=== PATIENT | female | born 2005 | race Asian ===

== ENCOUNTER 2025-07-06 23:11 | Emergency (ER) | payer BC, SELFPAY ==
[2025-07-06 23:17] VITALS: BP 117/59; PULSE 86; RESP 14; TEMP 36.6; O2SAT 99; BMI 25.7
[2025-07-06 23:36] LABS: MANUAL DIFF FLAG NO
[2025-07-06 23:37] LABS: Hematocrit 33.4 % (37.0-47.0); Hemoglobin 10.6 g/dl (12.0-16.0); Imm Gran Abs Auto 0.04 X10*3/uL (0.00-0.03); Imm Gran Pct Auto 0.3 % (0.0-0.4); Lymphocytes Absolute Auto 4.7 X10*3/uL (1.2-4.9); Mean Corpuscular HGB Conc 31.7 g/dl (31.0-35.0); Mean Corpuscular Hemoglobin 22.1 pg (27.0-33.0); Mean Corpuscular Volume 69.7 fL (80.0-98.0); NRBC Abs Auto 0.000 X10*3/uL (0.0-0.012); NRBC Pct Auto 0.0 /100WBC (0.0-0.2); Platelet Count 379 X10*3/uL (160-400); Red Blood Count 4.79 X10*6/uL (4.20-5.50); White Blood Count 13.4 X10*3/uL (4.8-10.8)
[2025-07-07] LABS: Alanine Aminotransferase 13 U/L (0-31); Albumin Level 3.9 g/dL (3.5-5.0); Alkaline Phosphatase 77 U/L (39-117); Anion Gap 11 (12-20); Aspartate Amino Transferase 18 U/L (5-31); Blood Urea Nitrogen 7 mg/dL (9-16); Calcium 9.2 mg/dL (8.4-10.2); Carbon Dioxide 23 mmol/L (22-29); Chloride 107 mmol/L (96-108); Creatinine Clr Calc Pharmacy 122.8; Estimated Glomerular Filt Rate > 60; Potassium 3.8 mmol/L (3.3-5.1); Sodium 137 mmol/L (135-145); Total Protein 7.6 g/dL (6.5-8.0)
--- NOTE | 2025-07-07 00:28 | ED.GENADULT ---
HPI - General Adult General Chief complaint: Vaginal Bleeding Stated complaint: Vaginal Bleeding Time Seen by Provider: 07/07/25 00:06 Source: patient Limitations: no limitations History of Present Illness ED Provider: Stefania Frausto PA-C HPI narrative: 20-year-old female with known fibroids and known dysfunctional uterine bleeding, presents with dysfunctional uterine bleeding. 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 Patient is currently on control to control the bleeding, she was advised to double up on her pills, if the bleeding continued. The patient has done so, but her vaginal bleeding has a remained refractory. Patient has had ongoing bleeding for 23 days. Patient states she has been prescribed an additional medication, however she does not have it with her, [place]. Related Data Allergies Allergy/AdvReac Type Severity Reaction Status Date / Time No Known Allergies Allergy Verified 07/06/25 23:22 Review of Systems Review of Systems: Yes all other systems are reviewed and are negative Constitutional: Constitutional: Denies fatigue and Denies fever(s) ENT: Denies dizziness Cardiovascular: Cardiovascular: Denies chest pain and Denies dyspnea Respiratory: Respiratory: Denies dyspnea Gastrointestinal: Gastrointestinal: Denies abdominal pain, Denies nausea and Denies vomiting Neurologic: Denies dizziness Endocrine: Endocrine: Denies fatigue PMF Past Medical History Attestation statement: The following information was validated with the patient. Social History Social History Do you have a plan to hurt others: No Plan Physical Exam ED Vital Signs: Vital Signs - 24 hr 07/06/25 23:17 Temperature 97.8 F Pulse Rate 86 Respiratory Rate 14 Blood Pressure 117/59 L Pulse Oximetry 99 Oxygen Delivery Method Room Air BMI result Body Mass Index 25.7 Const Other: Alert well-appearing Orientation/consciousness: patient oriented x3 Resp Effort & Inspection: normal respiratory effort Cardio Other: Normal peripheral perfusion Other: Deferred Skin Other: Warm dry no rash Neuro General: patient oriented x3, gait normal, no focal motor deficits and CN's II-XI intact bilaterally Psych Other: Cooperative Medical Decision Making Medical Decision Making [facility] Narrative: 20-year-old female with known fibroids and known dysfunctional uterine bleeding, presents with dysfunctional uterine bleeding. 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 Patient is currently on control to control the bleeding, she was advised to double up on her pills, if the bleeding continued. The patient has done so, but her vaginal bleeding has a remained refractory. Patient has had ongoing bleeding for 23 days. Patient states she has been prescribed an additional medication, however she does not have it with her, [place]. Problem: Known dysfunctional uterine bleeding, fibroids History: Per patient I have considered the following differential diagnoses: Fibroids, dysfunctional uterine bleeding, miscarriage, ectopic Plan: Screening labs were ordered from triage, the patient is not , her H&H are stable. There was nothing to do overnight. There are [facility] on campus, but I will also provide her with a [facility] clinic. She is in agreement with the plan. Differential Diagnosis Differential Diagnoses: The differential diagnosis associated with the presentation includes See medical decision-making Admission/Observation Consideration of admission/observation: Escalation of care including admission/observation considered Not applicable Lab Data MDM Lab Attestation statement: I reviewed the patient's lab results. 07/06/25 23:31 07/06/25 23:31 Labs: Lab Results 07/06/25 Range/Units 23:31 WBC 13.4 H (4.8-10.8) X10*3/uL RBC 4.79 (4.20-5.50) X10*6/uL Hgb 10.6 L (12.0-16.0) g/dl Hct 33.4 L (37.0-47.0) % MCV 69.7 L (80.0-98.0) fL MCH 22.1 L (27.0-33.0) pg MCHC 31.7 (31.0-35.0) g/dl RDW 17.4 H (11.0-16.0) % Plt Count 379 (160-400) X10*3/uL MPV 9.6 (9.4-12.3) fL Immature Gran % (Auto) 0.3 (0.0-0.4) % Neut % (Auto) 56.0 (45-73) % Lymph % (Auto) 35.2 (20-40) % Hettinger % (Auto) 7.5 (2-11) % Eos % (Auto) 0.9 (0-4) % Baso % (Auto) 0.1 (0-2) % Lymph # (Auto) 4.7 (1.2-4.9) X10*3/uL Hettinger # (Auto) 1.0 (0.1-1.2) X10*3/uL Eos # (Auto) 0.1 (0.0-0.4) X10*3/uL Baso # (Auto) 0.0 (0.0-0.2) X10*3/uL Abs Immat Gran (auto) 0.04 H (0.00-0.03) X10*3/uL Absolute Neuts (auto) 7.5 (2.0-8.3) x10*3/uL Absolute Nucleated RBC 0.000 (0.0-0.012) X10*3/uL Nucleated RBC % (auto) 0.0 (0.0-0.2) /100WBC Sodium 137 (135-145) mmol/L Potassium 3.8 (3.3-5.1) mmol/L Chloride 107 (96-108) mmol/L Carbon Dioxide 23 (22-29) mmol/L Anion Gap 11 L (12-20) BUN 7 L (9-16) mg/dL Creatinine 0.68 (0.5-1.4) mg/dL Estim Creat Clear Calc 122.8 Estimated GFR > 60 Random Glucose 166 H (60-115) mg/dL Calcium 9.2 (8.4-10.2) mg/dL Total Bilirubin 0.1 (0.0-1.0) mg/dL AST 18 (5-31) U/L ALT 13 (0-31) U/L Alkaline Phosphatase 77 (39-117) U/L Total Protein 7.6 (6.5-8.0) g/dL Albumin 3.9 (3.5-5.0) g/dL Beta HCG, Quant < 2 mIU/mL Discharge Plan Discharge Clinical Impression: Dysfunctional uterine bleeding Patient Disposition: Home, Self-Care Instructions: Abnormal (Dysfunctional) Uterine Bleeding (ED) Additional Instructions: All of your screening labs were normal, including your blood counts, you were not anemic. You need to follow up at a [facility], they can provide you with additional hormonal replacement to help control the bleeding. I have provided you with a contact. Call Tuesday to schedule an appointment. Referrals: Addie Mcintosh CNM [Certified Nurse Cracking [employer] Fanning Machine Operator, TECHNOLOGY CONSULTANT] Referral Note: Dysfunctional uterine bleeding secondary to fibroids
[2025-07-07 00:59] VITALS: BP 109/55; PULSE 72; RESP 16; TEMP 36.7; O2SAT 98
== END 2025-07-07 01:02 | disposition home or self-care (01) ==
PROVIDERS: Emergency Provider Emergency Medicine Emergency Medical Services
DX: N93.8 Other specified abnormal uterine and vaginal bleeding (principal); R10.2 Pelvic and perineal pain
CPT/HCPCS: 36415; 80053; 84702; 85025; 99283